=== PATIENT | male | born 1985 | race Caucasian/White ===

== ENCOUNTER 2019-08-12 12:23 | Outpatient (CLI) | payer BC, SELFPAY ==
[2019-08-12 12:42] LABS: Post Vasectomy Sperm Presence None Seen (None Seen)
== END 2019-08-12 12:24 | disposition home or self-care (01) ==
LOC: CHSLAB 12:29
PROVIDERS: PCP Family Medicine; Visit Provider Family Medicine
DX: Z98.52 Vasectomy status (principal)
CPT/HCPCS: 88160